=== PATIENT | female | born 1950 | race Caucasian/White ===

== ENCOUNTER 2018-12-25 10:57 | Emergency (ER) | payer OTHER ==
[2018-12-25 11:19] VITALS: BMI 31.0
[2018-12-25 12:56] LABS: URINE APPEARANCE SLCLOUDY; URINE BILIRUBIN NEGATIVE (<2.0 mg/dL); URINE COLOR LTYELLOW; URINE GLUCOSE (UA) NEGATIVE (NEGATIVE); URINE KETONE NEGATIVE (NEGATIVE); URINE LEUK ESTERASE TRACE (NEGATIVE); URINE NITRITE NEGATIVE (NEGATIVE); URINE PROTEIN NEGATIVE (NEGATIVE); URINE UROBILINOGEN NEGATIVE mg/dL (0.2-1.0)
[2018-12-25 13:03] LABS: EPI CELLS FEW /HPF (FEW)
[2018-12-25] MEDS ORDERED: traMADol HCL 50 MG TABLET PO ONE (13:05)
[2018-12-25 13:08] LABS: BASO % 0.7 % (0-2.0); HEMATOCRIT 41.7 % (32.4-45.2); LYMPH % 29.3 % (8-40); MCH 30.7 pg (25.7-33.7); MCHC 35.9 g/dl (32.0-36.0); MEAN CELL VOLUME 85.6 fl (80-96); MEAN PLT VOLUME 9.8 fl (7.5-11.1); MONO % 6.3 % (3.8-10.2); NEUT % 62.7 % (42.8-82.8); PLATELET COUNT 283 K/MM3 (134-434); RBC 4.87 M/mm3 (3.60-5.2); RDW 13.7 % (11.6-15.6); WHITE BLOOD COUNT 9.9 K/mm3 (4.0-10.0)
[2018-12-25 13:09] LABS: INR 0.97 (0.83-1.09); PROTHROMBIN TIME (PATIENT) 11.4 SEC (9.7-13.0)
--- NOTE | 2018-12-25 13:12 | PDOC ---
History of Present Illness - General History Source: Patient Exam Limitations: No Limitations - History of Present Illness Initial Comments: 12/25/18 13:15 The patient is a 68 year old female, with a significant past medical history of diabetes (poorly controlled), ovarian CA (s/p hysterectomy 3-4 yrs ago) who presents to the emergency department with left upper back pain, left upper extremity intermittent numbness, and left lower extremity weakness for about 5 months. She states she takes Advil which offers relief sometimes. She denies any recent trauma, but reports a fall in the snow September 2017. She states she is noncompliant with her diabetes medications and has poor PCP follow up. The patient denies chest pain, shortness of breath, headache and dizziness. The patient denies fever, chills, nausea, vomit, diarrhea and constipation. The patient denies dysuria, frequency, urgency and hematuria. Allergies: NKDA Past surgical history: total hysterectomy Social history: daily tobacco smoker <Yoko Gray - Last Filed: 12/25/18 13:15> <Rodney Veliz - Last Filed: 12/25/18 17:03> - General Chief Complaint: Weakness Stated Complaint: LT SIDE PAIN Time Seen by Provider: 12/25/18 11:53 Past History <Yoko Gray - Last Filed: 12/25/18 13:15> - Past Medical History COPD: No Diabetes: Yes (NIDDM) - Immunization History Immunization Up to Date: Yes - Suicide/Smoking/Psychosocial Hx Smoking History: Current every day smoker Have you smoked in the past 12 months: Yes Number of Cigarettes Smoked Daily: 15 Information on smoking cessation initiated: Yes Hx Alcohol Use: No Drug/Substance Use Hx: No <Rodney Veliz - Last Filed: 12/25/18 17:03> - Past Medical History Allergies/Adverse Reactions: Allergies Allergy/AdvReac Type Severity Reaction Status Date / Time No Known Allergies Allergy Verified 12/25/18 11:19 Home Medications: Ambulatory Orders Glyburide [Micronase -] 1 mg PO BID 12/25/18 Tramadol HCl 50 mg PO TID PRN #14 tablet MDD 3 tabs 12/25/18 Review of Systems - Review of Systems Constitutional: No: Chills, Fever, Night Sweats, Unintentional Wgt. Loss HEENTM: No: Recent change in vision Respiratory: No: Cough, Shortness of Breath, SOB with Exertion Cardiac (ROS): No: Chest Pain, Edema, Syncope ABD/GI: No: Diarrhea, Nausea, Vomiting : No: Symptoms Reported Musculoskeletal: Yes: See HPI Neurological: No: Headache All Other Systems: Reviewed and Negative <Rodney Veliz - Last Filed: 12/25/18 17:03> *Physical Exam - Vital Signs Last Vital Signs Temp Pulse Resp BP Pulse Ox 97.6 F 83 20 107/71 99 12/25/18 11:12 12/25/18 11:12 12/25/18 11:12 12/25/18 11:12 12/25/18 11:12 - Physical Exam Comments: 12/25/18 13:15 GENERAL: The patient is awake, alert, and fully oriented, seated and in no acute distress. HEAD: Normal with no signs of trauma. EYES: Pupils equal, round and reactive to light, extraocular movements intact, sclera anicteric, conjunctiva clear with no pallor. ENT: Ears normal, nares patent, oropharynx clear without exudates. Moist mucous membranes. NECK: Normal range of motion, supple without lymphadenopathy, JVD, or masses. LUNGS: Breath sounds equal, clear to auscultation bilaterally. No wheeze/ crackles. HEART: Regular rate and rhythm, normal S1 and S2 without murmur or rub. ABDOMEN: Soft/nontender/nondistended. BS wnl. No guarding or rebound. No palpable masses. No hepatosplenomegaly. EXTREMITIES: (+) Ttp left lateral hip. Otherwise Full ROM and strength. Normal range of motion, no edema. No clubbing or cyanosis. No cords, erythema, BACK: (+) Reproducible ttp lower lumbar region along midline without obvious stepoff PSYCH: Normal mood, normal affect. SKIN: Warm, Dry, normal turgor, no rashes or lesions noted. NEURO: Mental status: The patient is alert and oriented x3. Cranial nerves: Cranial nerves II through XII are intact Motor: The upper extremities are 5 over 5 in all muscle groups. The lower extremities are 5 over 5 in all muscle groups. No pronator drift. Sensation: Sensation is intact to light touch throughout. Cerebellar: Klnvtb-cstmrk-abgy is normal in both upper extremities. Heel-knee- dumont is normal in both lower extremities. Reflexes: 2+ and symmetric in the upper and lower extremities. Gait: Normal. Heel and toe walking are normal. Tandem gait is normal. <Yoko Gray - Last Filed: 12/25/18 13:15> - Vital Signs Last Vital Signs Temp Pulse Resp BP Pulse Ox 97.6 F 83 20 107/71 99 12/25/18 11:12 12/25/18 11:12 12/25/18 11:12 12/25/18 11:12 12/25/18 11:12 <Rodney Veliz - Last Filed: 12/25/18 17:03> Moderate Sedation - Procedure Monitoring Vital Signs: Procedure Monitoring Vital Signs Temperature 97.6 F 12/25/18 11:12 Pulse Rate 83 12/25/18 11:12 Respiratory Rate 20 12/25/18 11:12 Blood Pressure 107/71 12/25/18 11:12 O2 Sat by Pulse Oximetry (%) 99 12/25/18 11:12 <Yoko Gray - Last Filed: 12/25/18 13:15> - Procedure Monitoring Vital Signs: Procedure Monitoring Vital Signs Temperature 97.6 F 12/25/18 11:12 Pulse Rate 83 12/25/18 11:12 Respiratory Rate 20 12/25/18 11:12 Blood Pressure 107/71 12/25/18 11:12 O2 Sat by Pulse Oximetry (%) 99 12/25/18 11:12 <Rodney Veliz - Last Filed: 12/25/18 17:03> ED Treatment Course - LABORATORY CBC & Chemistry Diagram: 12/25/18 12:30 12/25/18 12:22 - ADDITIONAL ORDERS Additional order review: Laboratory Results 12/25/18 12/25/18 12:30 12:30 PT with INR 11.40 INR 0.97 Urine Color Ltyellow Urine Appearance Slcloudy Urine pH 6.0 Ur Specific [place] 1.009 L Urine Protein Negative Urine Glucose (UA) Negative Urine Ketones Negative Urine Blood Negative Urine Nitrite Negative Urine Bilirubin Negative Urine Urobilinogen Negative Ur Leukocyte Esterase Trace Urine WBC (Auto) 2 Urine RBC (Auto) 1 Ur Epithelial Cells Few <Yoko Gray - Last Filed: 12/25/18 13:15> - LABORATORY CBC & Chemistry Diagram: 12/25/18 12:30 03/14/19 12:22 - ADDITIONAL ORDERS Additional order review: Laboratory Results 12/25/18 12:30 Urine Color Ltyellow Urine Appearance Slcloudy Urine pH 6.0 Ur Specific [place] 1.009 L Urine Protein Negative Urine Glucose (UA) Negative Urine Ketones Negative Urine Blood Negative Urine Nitrite Negative Urine Bilirubin Negative Urine Urobilinogen Negative Ur Leukocyte Esterase Trace Urine WBC (Auto) 2 Urine RBC (Auto) 1 Ur Epithelial Cells Few - RADIOLOGY Radiology Studies Ordered: Category Date Time Status CHEST PA & LAT [RAD] Stat Radiology 12/25/18 12:19 Taken HIP & PELVIS-LEFT [RAD] Stat Radiology 12/25/18 12:20 Taken SPINE-LUMBAR SACRAL [RAD] Stat Radiology 12/25/18 12:20 Taken <Rodney Veliz - Last Filed: 12/25/18 17:03> Medical Decision Making - Medical Decision Making 12/25/18 13:05 68-year-old female with history of diabetes, ovarian CA presents with various musculoskeletal complaints for up to 6 months, intermittent and usually localized to the mid low back and left hip region, positional in nature and the low back pain is associated with radiating left leg pains down to the foot. No weakness or paralysis, positive paresthesias. No cardiopulmonary complaints, no bowel or bladder issues. Followed by Dr. Snider and recent CXR/abd sono wnl. Presentation most consistent with musculoskeletal etiology, no evidence of external injury or trauma or infection. Question neoplastic given history of ovarian CA and smoking, question arthritic. Labs Chest x-ray, LS-spine, left hip/pelvis Pain control Reassess 12/25/18 16:58 Labs are within normal limits, urinalysis is clear. X-rays showed degenerative disease but no evidence of fracture or lytic lesions Patient feels much better after tramadol, is ambulatory without assistance Agrees with discharge plan on pain control, has follow-up arranged with Dr. Squires, should have an MRI as outpatient for further evaluation. Understands return criteria. <Rodney Veliz - Last Filed: 12/25/18 17:03> *DC/Admit/Observation/Transfer - Attestations Scribe Attestion: 12/25/18 13:15 Documentation prepared by Yoko Gray, acting as director global medical affairs for Rodney Veliz MD, <MarinaYoko - Last Filed: 12/25/18 13:15> <Rodney Veliz - Last Filed: 12/25/18 17:03> Diagnosis at time of Disposition: Musculoskeletal pain - Discharge Dispostion Disposition: HOME Condition at time of disposition: Improved - Prescriptions Prescriptions: Tramadol HCl 50 mg PO TID PRN #14 tablet MDD 3 tabs PRN Reason: Pain - Referrals Referrals: Eboni Squires MD [Staff Physician] - Jackie Jacobs MD [Staff Physician] - - Patient Instructions Printed Discharge Instructions: DI for Musculoskeletal Pain Additional Instructions: Activity as tolerated. Stay hydrated. Blood tests, a urine test, and x-rays today showed no acute abnormalities or obvious bone lesions. Continue your medications as previously prescribed by your physician. Take tramadol as prescribed as needed for pain. Tramadol can make you lightheaded, so take proper precautions. You should follow up with your new primary doctor, Dr. Squires, as soon as possible regarding today's emergency department visit. You should also see a painter decorator, consider calling Dr. Jacobs for an appointment. Return to the emergency department for any new or concerning symptoms, particularly intolerable pain, fevers or chills, leg weakness, bowel or bladder issues.],
[2018-12-25 13:25] LABS: ALBUMIN 3.7 g/dl (3.4-5.0); ALK PHOS 95 U/L (45-117); ANION GAP 4 MMOL/L (8-16); BILIRUBIN,TOTAL 1.3 mg/dL (0.2-1); BLOOD UREA NITROGEN 12 mg/dL (7-18); CALCIUM 9.1 mg/dL (8.5-10.1); CHLORIDE 106 mmol/L (98-107); CO2 26 mmol/L (21-32); CREATININE 0.7 mg/dL (0.55-1.3); GLUCOSE,RANDOM 138 mg/dL (74-106); MAGNESIUM 2.5 mg/dL (1.8-2.4); POTASSIUM 4.4 mmol/L (3.5-5.1); SGOT/AST 11 U/L (15-37); SGPT/ALT 18 U/L (13-61); SODIUM 136 mmol/L (136-145); TOT PROT 7.9 g/dl (6.4-8.2)
[2018-12-25] MEDS ORDERED: traMADol HCL 50 MG TABLET ONE (14:05)
[2018-12-25 17:10] VITALS: BP 130/74; PULSE 64; TEMP 97.6
--- NOTE | 2018-12-26 11:11 | EKG ---
Test Reason : Blood Pressure : / mmHG Vent. Rate : 077 BPM Atrial Rate : 077 BPM P-R Int : 152 ms QRS Dur : 090 ms QT Int : 388 ms P-R-T Axes : 029 -17 033 degrees QTc Int : 439 ms NORMAL SINUS RHYTHM POSSIBLE LEFT ATRIAL ENLARGEMENT WHEN COMPARED WITH ECG OF 21-AUG-2001 07:56, NO SIGNIFICANT CHANGE WAS FOUND Confirmed by JOSEPH FRIEDMAN MD ([id number]) on 12/26/2018 11:11:31 AM Referred By: Confirmed By:JOSEPH FRIEDMAN MD
== END 2018-12-25 17:09 | disposition home or self-care (01) ==
LOC: JER 10:57
DX: M25.552 Pain in left hip (principal); M54.5 Low back pain; E11.9 Type 2 diabetes mellitus without complications; Z79.84 Long term (current) use of oral hypoglycemic drugs; Z85.43 Personal history of malignant neoplasm of ovary; Z90.79 Acquired absence of other genital organ(s)
CPT/HCPCS: 36415; 71046-TC-FY; 72100-TC-FY; 73523-TC-FY; 80053; 81003; 81015; 82550; 83735; 84484; 85025; 85610; 86850; 86900; 86901; 93005; 93010; 99285-25

== ENCOUNTER 2023-06-22 14:46 | Emergency (ER) | payer OTHER ==
[2023-06-22 15:02] VITALS: TEMP 97.8; BMI 29.6
[2023-06-22] MEDS ORDERED: SODIUM CHLORIDE 0.9% 500 ML INFUS.BAG IV ONE (16:34)
[2023-06-22 17:22] LABS: BASO % 0.3 % (0-2.0); EOS % 0.9 % (0-4.5); HEMATOCRIT 39.3 % (32.4-45.2); HEMOGLOBIN 13.7 GM/dL (10.7-15.3); MCH 28.5 pg (25.7-33.7); MCHC 34.7 g/dl (32.0-36.0); MEAN CELL VOLUME 81.9 fl (80-96); MEAN PLT VOLUME 9.3 fl (7.5-11.1); NEUT % 62.8 % (42.8-82.8); PLATELET COUNT 292 10^3/uL (134-434); RDW 14.4 % (11.6-15.6); WHITE BLOOD COUNT 9.8 K/mm3 (4.0-10.0)
[2023-06-22 17:37] LABS: POTASSIUM 4.7 mmol/L (3.5-5.1)
[2023-06-22 17:39] LABS: BLOOD UREA NITROGEN 12.8 mg/dL (7-18); CALCIUM 9.6 mg/dL (8.5-10.1)
[2023-06-22 17:40] LABS: ALBUMIN 3.9 g/dl (3.4-5.0)
[2023-06-22 17:42] LABS: CREATININE 0.9 mg/dL (0.55-1.3)
[2023-06-22 17:44] LABS: BILIRUBIN,TOTAL 2.1 mg/dL (0.2-1); TOT PROT 8.5 g/dl (6.4-8.2)
[2023-06-22] MEDS ORDERED: CEFAZOLIN 1 GM in DEXTROSE 5%-WATER - 50 ML IVPB ONE (18:10)
[2023-06-22] MEDS ORDERED: ONDANSETRON 4 MG/2 ML VIAL IVPUSH ONE (18:11)
[2023-06-22] MEDS ORDERED: ONDANSETRON 4 MG/2 ML VIAL ONE (18:28)
[2023-06-22] MEDS ORDERED: ceFAZolin SODIUM 1 GM VIAL ONE (18:29)
[2023-06-22 18:50] VITALS: BP 120/78; PULSE 84; RESP 14
== END 2023-06-22 20:30 | disposition home or self-care (01) ==
LOC: JER 14:46
PROC: 3E03329 Introduction of Other Anti-infective into Peripheral Vein, Percutaneous Approach (ICD-10-PCS; principal; 2023-06-22)
PROC: 3E033GC Introduction of Other Therapeutic Substance into Peripheral Vein, Percutaneous Approach (ICD-10-PCS; 2023-06-22)
PROC: 3E033GC Introduction of Other Therapeutic Substance into Peripheral Vein, Percutaneous Approach (ICD-10-PCS; 2023-06-22)
DX: R21 Rash and other nonspecific skin eruption (principal); L03.113 Cellulitis of right upper limb
CPT/HCPCS: 36415; 80053; 82962; 83605; 85025; 99284-25

== ENCOUNTER 2024-05-16 19:04 | Emergency (ER) | payer OTHER ==
[2024-05-16 19:20] VITALS: BP 119/88; PULSE 101; RESP 20; TEMP 98.6; BMI 31.3
== END 2024-05-16 21:18 | disposition home or self-care (01) ==
LOC: JER 19:04
DX: U07.1 COVID-19 (principal); J02.9 Acute pharyngitis, unspecified; M79.10 Myalgia, unspecified site; R05.9 Cough, unspecified
CPT/HCPCS: 0241U-QW; 93005; 93010; 99284-25

== ENCOUNTER 2024-10-13 15:12 | Emergency (ER) | payer OTHER ==
[2024-10-13 15:24] VITALS: BP 146/82; PULSE 92; RESP 16; TEMP 97.6; BMI 30.4
[2024-10-13] MEDS ORDERED: ACETAMINOPHEN 325 MG TABLET (FP) ONE (16:16)
[2024-10-13] MEDS: ACETAMINOPHEN 500 MG TABLET (FP) PO ONE (17:04)
[2024-10-13 18:07] LABS: HIV INTERPRETATION NEGATIVE (NEGATIVE)
== END 2024-10-13 18:03 | disposition home or self-care (01) ==
LOC: JER 15:12
DX: R05.9 Cough, unspecified (principal); J06.9 Acute upper respiratory infection, unspecified; R09.81 Nasal congestion; Z20.822 Contact with and (suspected) exposure to COVID-19
CPT/HCPCS: 0241U-QW; 36415; 86803; 87389; 93005; 93010; 99284-25